=== PATIENT | female | born 1975 | race Caucasian/White ===

== ENCOUNTER 2018-07-24 17:18 | Emergency (ER) | payer MEDICAID ==
[~2018-07-24] VITALS: Ht 167.6 cm; Wt 70.0 kg
[~2018-07-24 17:18] MED LIST: ADV50250 IH; ALB0.5UD IH; ALPR-624 PO; DIVA500T9 PO; DOCU-28 PO; FLUT16SP2 BOTHNARES; GABA-530 PO; OXYC-145 PO; RIVA20TA; TRAZ-218 PO
[2018-07-24 17:21] VITALS: BP 138/73
[2018-07-24] MEDS ORDERED: ketorolac tromethamine 15mg/ml inj. IM ONE (22:05)
== END 2018-07-24 22:39 | disposition home or self-care (01) ==
LOC: ER 17:18
DX: G89.29 Other chronic pain (principal); M79.604 Pain in right leg; J45.909 Unspecified asthma, uncomplicated; Z98.890 Other specified postprocedural states; Z88.0 Allergy status to penicillin; Z88.1 Allergy status to other antibiotic agents; Z88.5 Allergy status to narcotic agent; Z88.6 Allergy status to analgesic agent; Z79.899 Other long term (current) drug therapy
CPT/HCPCS: 93971; 99284

== ENCOUNTER 2018-08-24 05:07 | Emergency (ER) | payer MEDICAID ==
[~2018-08-24] VITALS: Ht 167.6 cm; Wt 67.7 kg
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
== END 2018-08-24 05:38 | disposition home or self-care (01) ==
LOC: ER 05:07
DX: S60.811A Abrasion of right wrist, initial encounter (principal); M25.532 Pain in left wrist; Z88.6 Allergy status to analgesic agent; Z88.1 Allergy status to other antibiotic agents; Z88.0 Allergy status to penicillin; Z88.8 Allergy status to other drugs, medicaments and biological substances; J45.909 Unspecified asthma, uncomplicated; V89.2XXA Person injured in unspecified motor-vehicle accident, traffic, initial encounter; Y93.89 Activity, other specified; Y92.488 Other paved roadways as the place of occurrence of the external cause; Y99.8 Other external cause status
CPT/HCPCS: 99281; 99283

== ENCOUNTER 2018-08-29 23:12 | Emergency (ER) | payer MEDICAID ==
[~2018-08-29] VITALS: Ht 170.2 cm; Wt 59.5 kg
[2018-08-30] MEDS ORDERED: ketorolac trometh inj. 60 MG/2 ML VIAL IM ONE (01:55)
[2018-08-30 03:29] VITALS: BP 166/99
== END 2018-08-30 02:50 | disposition home or self-care (01) ==
LOC: ER 23:13
DX: S80.01XA Contusion of right knee, initial encounter (principal); J45.909 Unspecified asthma, uncomplicated; Z88.0 Allergy status to penicillin; Z88.1 Allergy status to other antibiotic agents; Z79.899 Other long term (current) drug therapy; W01.0XXA Fall on same level from slipping, tripping and stumbling without subsequent striking against object, initial encounter; Y93.89 Activity, other specified; Y92.89 Other specified places as the place of occurrence of the external cause; Y99.8 Other external cause status
CPT/HCPCS: 71045; 73564; 96372; 99284; J1885

== ENCOUNTER 2018-10-15 07:22 | Emergency (ER) | payer MEDICAID ==
[~2018-10-15] VITALS: Ht 170.2 cm; Wt 72.6 kg
[~2018-10-15 07:22] MED LIST changes: -TRAZ-218 PO; +TRAZ-251 PO
[2018-10-15] MEDS ORDERED: cyclobenzaprine 10mg tablet PO ONE (07:55)
[2018-10-15] MEDS ORDERED: CYCL-1 PO (08:43)
[2018-10-15 08:56] VITALS: BP 111/70
== END 2018-10-15 08:59 | disposition home or self-care (01) ==
LOC: ER 07:22
DX: R51 Headache (principal); J45.909 Unspecified asthma, uncomplicated; F17.200 Nicotine dependence, unspecified, uncomplicated; Z88.0 Allergy status to penicillin; Z88.1 Allergy status to other antibiotic agents; Z88.5 Allergy status to narcotic agent; Z88.8 Allergy status to other drugs, medicaments and biological substances; Z79.899 Other long term (current) drug therapy
CPT/HCPCS: 70450; 99284

== ENCOUNTER 2019-03-20 10:16 | Outpatient (CLI) | payer MEDICAID ==
[~2019-03-20] VITALS: Ht 167.6 cm; Wt 78.9 kg
[~2019-03-20 10:16] MED LIST changes: +CYCL-1 PO
[2019-03-20] MEDS ORDERED: albuterol 2.5 MG/3 ML nebule NEB ONE (10:45)
== END 2019-03-20 23:59 | disposition home or self-care (01) ==
LOC: RT 10:16
PROVIDERS: ATTEND Family Medicine
DX: J98.4 Other disorders of lung (principal); F17.200 Nicotine dependence, unspecified, uncomplicated; Z87.09 Personal history of other diseases of the respiratory system
CPT/HCPCS: 94060; 94727; 94729; 94760